=== PATIENT | male | born 1995 | race African-American/Black ===

== ENCOUNTER 2017-04-22 20:58 | Emergency (ER) | payer BC, MEDICAID ==
[~2017-04-22] VITALS: Ht 172.7 cm; Wt 79.0 kg
[2017-04-22 21:47] VITALS: BP 109/46
[2017-04-22] MEDS ORDERED: TETANUS, DIPHTHERIA, PERTUSSIS VAC/PF 0.5ML (>7YR OLD) IM ONE (22:30)
[2017-04-22] MEDS ORDERED: BACITRACIN ZINC OINT UDPKT TOP ONE (22:30)
[2017-04-22] MEDS ORDERED: LIDOCAINE HCL 1% 20ML VIAL (Pyxis) INJ MC ONE (22:30)
== END 2017-04-22 23:46 | disposition home or self-care (01) ==
LOC: ER 22:06
DX: S01.112A Laceration without foreign body of left eyelid and periocular area, initial encounter (principal); J45.909 Unspecified asthma, uncomplicated; Y93.75 Activity, martial arts; Y92.89 Other specified places as the place of occurrence of the external cause
CPT/HCPCS: 12011; 90471; 90715; 99283; J3490; X7700; Z7610

== ENCOUNTER 2017-04-29 05:01 | Emergency (ER) | payer BC, MEDICAID ==
[~2017-04-29] VITALS: Ht 172.7 cm; Wt 80.8 kg
[2017-04-29 05:16] VITALS: BP 128/68
== END 2017-04-29 08:30 | disposition left against medical advice (07) ==
LOC: ER 05:01
DX: Z53.21 Procedure and treatment not carried out due to patient leaving prior to being seen by health care provider (principal)